=== PATIENT | male | born 1955 | race Caucasian/White ===

== ENCOUNTER → 2019-09-22 | Outpatient (CLI) | payer BC, OTHER | LOC: LAB 11:53 | PROVIDERS: ATTEND Anesthesiology | DX: Z01.812 Encounter for preprocedural laboratory examination (principal); Z11.59 Encounter for screening for other viral diseases ==

== ENCOUNTER → 2021-02-01 | Outpatient (CLI) | payer BC, OTHER ==
--- NOTE | 2021-02-03 09:00 | SLE ---
[facility] [place] [address] POLYSOMNOGRAPHY STUDY Name: REINALDO ROLDAN Room #: REG [facility].#: [id number] Admission: 02/01/21 Attend Phys: Deshawn Rebollar MD Discharge: Date of : 59 Report #: [id number] THIS REPORT FOR: cc: Baldo Puente Ronald D. DO Khan, Aman U. MD ~ cc: Deshawn Rebollar MD DATE OF SERVICE: 02/01/2021 SLEEP STUDY ATTENDING PHYSICIAN: Dr. Deshawn Rebollar. Reinaldo is 66 years old with a BMI of 41.2. The patient has a history of severe sleep apnea. The patient has difficulty in tolerating higher CPAP pressures. The patient was recommended to have in-lab BiPAP titration study. During the night study, the patient spent 444 minutes in bed and slept for 313 minutes with a sleep efficiency of 70%. Sleep latency was 51 minutes with a REM latency of 78 minutes. Sleep architecture showed normal stage 1 and stage 2 sleep, normal slow wave, and normal REM sleep. EKG monitoring revealed an average heart rate of 67 beats per minute. No arrhythmias observed. No significant PLM seen. The patient was started on BiPAP at a pressure of 10/6 and titrated up to 15/9. At the final pressure, the patient slept for 23 minutes including 13 minutes of REM sleep. The patient had supine sleep as well. The patient's AHI was reduced to 0 per hour and oxygen saturation remained above 89%. Even at lower pressures, when the patient slept for longer time, AHI was less than 1 per hour. IMPRESSION: 1. Severe sleep apnea, diagnosed previously. 2. No significant periodic limb movements. 3. No significant nocturnal hypoxia while on therapeutic BiPAP pressure. RECOMMENDATIONS: 1. BiPAP at a pressure of 15/9 completely eliminated the patient's sleep apnea and should be used on a nightly basis. 2. Follow up in 4-6 weeks to assess compliance with BiPAP and to document clinical improvement. 3. Weight loss is advised. 4. Avoid [employer] depressants. [facility] [address] [place] [address] POLYSOMNOGRAPHY STUDY Name: REINALDO ROLDAN Room #: REG [facility].#: [id number] Admission: 02/01/21 Attend Phys: Deshawn Rebollar MD Discharge: Date of : 59 Report #: [id number] 5. Cautioned regarding driving until symptoms of sleep apnea resolve with the use of BiPAP. <ELECTRONICALLY SIGNED> By: Jose Angel Martinez MD 02/03/21 0900 [id number] Jose Angel Martinez MD /nt
== END ==
LOC: SLEEPLAB 21:00
PROVIDERS: ATTEND Internal Medicine
DX: G47.33 Obstructive sleep apnea (adult) (pediatric) (principal); Z20.822 Contact with and (suspected) exposure to COVID-19